=== PATIENT | male | born 1965 | race African-American/Black ===

== ENCOUNTER 2018-08-25 19:38 | Emergency (ER) | payer MEDICAID ==
[~2018-08-25] VITALS: Ht 172.7 cm; Wt 72.7 kg
[2018-08-25] MEDS ORDERED: HYDROCODONE/ACETAMINOPHEN 5/325MG TABLET PO ONE (22:45)
[2018-08-25] MEDS ORDERED: BACITRACIN ZINC OINT UDPKT TOP ONE (23:30)
[2018-08-25 23:59] VITALS: BP 123/77
== END 2018-08-26 00:01 | disposition home or self-care (01) ==
LOC: ER 19:54
DX: S00.03XA Contusion of scalp, initial encounter (principal); G40.909 Epilepsy, unspecified, not intractable, without status epilepticus; Z98.890 Other specified postprocedural states; W18.09XA Striking against other object with subsequent fall, initial encounter; Y93.89 Activity, other specified; Y92.018 Other place in single-family (private) house as the place of occurrence of the external cause
CPT/HCPCS: 70450; 99284; C1893